=== PATIENT | female | born 1965 | race Caucasian/White ===

== ENCOUNTER 2018-02-21 12:27 | Outpatient (CLI) | payer BC | END 2018-02-21 12:28 | disposition home or self-care (01) | LOC: EDBD 12:27 → BICMAMMO 12:27 | PROVIDERS: ATTEND Family Medicine | DX: Z12.31 Encounter for screening mammogram for malignant neoplasm of breast (principal) | CPT/HCPCS: 77063; 77067 ==

== ENCOUNTER 2019-02-11 09:40 | Outpatient (CLI) | payer BC ==
--- NOTE | 2019-02-11 10:57 | RAD ---
LEFT HIP TWO VIEWS: HISTORY: Pain. FINDINGS: The contour of the femoral head is maintained. The joint spaces are preserved. No fracture. The visualized bony pelvis is unremarkable. IMPRESSION: Unremarkable two views left hip. POS: CET
== END 2019-02-11 09:41 | disposition home or self-care (01) ==
LOC: BICRAD 09:40
PROVIDERS: ATTEND Family Medicine
DX: M25.552 Pain in left hip (principal)
CPT/HCPCS: 36415; 80053; 80061; 81001; 85025; 87624; 88142; G0123

== ENCOUNTER 2019-02-28 11:49 | Outpatient (CLI) | payer BC ==
--- NOTE | 2019-02-28 14:24 | MMO ---
Bilateral MAMMO Bilat Screen [facility]. CLINICAL HISTORY: Patient is 53 years old and is seen for screening. The patient has no family history of breast cancer. The patient has no personal history of cancer. VIEWS: The views performed were: bilateral craniocaudal with tomosynthesis and bilateral mediolateral oblique with tomosynthesis. FILMS COMPARED: The present examination has been compared to prior imaging studies performed at [facility] on 02/21/2018, and at [facility] on 05/06/2015, 11/10/2015 and 11/24/2016. This study has been interpreted with the assistance of computer-aided detection. MAMMOGRAM FINDINGS: There are scattered fibroglandular densities. There are stable intramammary lymph nodes seen in both breasts. There are no suspicious masses, suspicious calcifications, or new areas of architectural distortion. IMPRESSION: THERE IS NO MAMMOGRAPHIC EVIDENCE OF MALIGNANCY. A ROUTINE FOLLOW-UP MAMMOGRAM IN 1 YEAR IS RECOMMENDED. THE RESULTS OF THIS EXAM WERE SENT TO THE PATIENT. ACR BI-RADS Category 2 - Benign finding MAMMOGRAPHY NOTE: 1. A negative mammogram report should not delay a biopsy if a dominant of clinically suspicious mass is present. 2. Approximately 10% to 15% of breast cancers are not detected by mammography. 3. Adenosis and dense breasts may obscure an underlying neoplasm. Reported by: YOEL VEGA MD Electonically Signed: [id number]
== END 2019-02-28 11:50 | disposition home or self-care (01) ==
LOC: BICMAMMO 11:49
PROVIDERS: ATTEND Family Medicine
DX: Z12.31 Encounter for screening mammogram for malignant neoplasm of breast (principal)
CPT/HCPCS: 77063; 77067

== ENCOUNTER 2019-08-06 15:34 | Outpatient (CLI) | payer BC ==
--- NOTE | 2019-08-06 18:01 | RAD ---
EXAM: RIGHT KNEE FOUR VIEWS: 08/06/19 HISTORY: Right knee pain. Status post ACL repair. FINDINGS: Status post ACL repair changes. Very mild degenerative and osteoarthrosis change of the knee joint. E vidence for some subchondral cystic changes of the patella. IMPRESSION: No significant fracture or dislocation or other acute process. Status post ACL repair. POS: RRE
== END 2019-08-06 15:35 | disposition home or self-care (01) ==
LOC: BICRAD 15:34
PROVIDERS: ATTEND Family Medicine
DX: M25.561 Pain in right knee (principal); Z98.890 Other specified postprocedural states

== ENCOUNTER 2022-08-18 12:40 | Outpatient (CLI) | payer BC | END 2022-08-18 12:41 | disposition home or self-care (01) | LOC: SCSRAD 12:40 | PROVIDERS: ATTEND Family Medicine | DX: M25.562 Pain in left knee (principal) ==

== ENCOUNTER 2023-01-13 14:50 | Outpatient (CLI) | payer BC | END 2023-01-13 14:51 | disposition home or self-care (01) | LOC: SCSRAD 14:50 | PROVIDERS: ATTEND Family Medicine | DX: R05.1 Acute cough (principal) | CPT/HCPCS: 71046 ==